=== PATIENT | male | born 1995 | race Hispanic/Latino ===

== ENCOUNTER 2023-06-01 18:50 | Emergency (ER) | payer OTHER ==
[2023-06-01] MEDS ORDERED: Ketorolac Tromethamine 30 MG (1 mL) VIAL ONE (19:43)
[2023-06-01] MEDS ORDERED: Boostrix 0.5 ML (Tdap) VIAL (>/=7 yrs of age) ONE (19:43)
[2023-06-01] MEDS ORDERED: Bacitracin 1 PK ONE (20:04)
== END 2023-06-01 20:14 | disposition home or self-care (01) ==
LOC: ERS 18:50
DX: S60.222A Contusion of left hand, initial encounter (principal); S60.221A Contusion of right hand, initial encounter; S70.02XA Contusion of left hip, initial encounter; S80.01XA Contusion of right knee, initial encounter; S80.212A Abrasion, left knee, initial encounter; S80.211A Abrasion, right knee, initial encounter; V23.41XA Electric (assisted) bicycle driver injured in collision with car, pick-up truck or van in traffic accident, initial encounter; Z23 Encounter for immunization
CPT/HCPCS: 90471; 90715; 96374; J1885